=== PATIENT | female | born 1970 | race Caucasian/White ===

== ENCOUNTER → 2017-04-09 | Outpatient (CLI) | payer BC ==
--- NOTE | 2017-04-09 21:53 | XR ---
EXAMINATION TYPE: XR chest 2V DATE OF EXAM: 04/09/2017 COMPARISON: None HISTORY: 46 year-old female shortness of breath and cough for 5 weeks TECHNIQUE: Frontal and lateral views FINDINGS: The cardiomediastinal silhouette, aorta, and pulmonary vasculature are within normal limits. Lungs an d pleural spaces are clear. IMPRESSION: No acute cardiopulmonary process.
== END | disposition home or self-care (01) ==
LOC: RADXRYALE 16:13
PROVIDERS: ATTEND Physician Assistant Medical
DX: R06.02 Shortness of breath (principal)
CPT/HCPCS: 71020

== ENCOUNTER → 2018-09-23 | Outpatient (CLI) | payer BC ==
--- NOTE | 2018-09-23 18:42 | CT ---
EXAMINATION TYPE: CT sinus wo con DATE OF EXAM: 09/23/2018 COMPARISON: None HISTORY: 47-year-old female Chronic sinusitis and bilateral maxillary sinus pain. CT DLP: 644 mGycm Automated exposure control for dose reduction was used. TECHNIQUE: Noncontrast axial views of the paranasal sinuses were obtained. Coronal reconstructions pe rformed. FINDINGS: PARANASAL SINUSES: Moderate mucosal thickening left maxillary sinus with an air-fluid level. Mild mucosal thickening rig ht maxillary sinus but with mucosal retention cyst or polyp at the right maxillary sinus floor. Trace mucosal thickening right sphenoid sinus and moderate partial opacification anterior left ethmoi d air cells. Frontal sinuses are well pneumatized. Reactive zeny- osteogenesis is not seen. There is no destruction of the osseous bragg of the paranasal sinuses. THE NASAL CAVITY: Prominent opacification at the left osteomeatal complex which still remains patent. The right osteome atal complex is patent. The nasal septum is not deviated. The imaged brain and orbits are normal in appearance. Mastoid air cells and middle ear cavities are well pneumatized. Reformatted images confirm above findings. IMPRESSION: 1. Correlate for moderate acute on chronic left maxillary sinusitis. 2. Mild chronic paranasal sinus disease elsewhere though moderate also within the anterior left ethmo id air cells.
== END ==
LOC: RADCTMAIN 16:37
PROVIDERS: ATTEND Internal Medicine
DX: J32.2 Chronic ethmoidal sinusitis (principal)
CPT/HCPCS: 70486

== ENCOUNTER → 2018-12-03 | Outpatient (CLI) | payer BC ==
[2018-12-03 13:37] VITALS: BP 142/89; PULSE 104; RESP 16; TEMP 98.2; BMI 43.9
--- NOTE | 2018-12-03 14:18 | P.HPOB ---
History of Present Illness H&P Date: 12/03/18 Chief Complaint: The patient is here for her routine gynecologic exam and ma mmogram. This is a 48-year-old G2 PII with an LMP of June 2018. The patient is here to establish with this office. It has been about 3 years since her last pelvic exam. She is status post tubal ligation. Her menstrual periods have been spacing out over the last 2 years and have been about every 6 months during the past year. She is without gynecologic complaints. She denies any significant hot flashes. Review of Systems The patient's weight has been stable over the last year. She denies respiratory, cardiac, or G.I. problems. Past Medical History Past Medical History: GERD/Reflux Additional Past Medical History / Comment(s): Seasonal allergies. 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 - Past Family History Maternal grandmother Family Medical History: Cancer Additional Family Medical History / Comment(s): Possible gynecologic cancer, type uncertain. Mother Family Medical History: No Reported History Medications and Allergies Home Medications Medication Instructions Recorded Confirmed Type Ascorbic Acid [Vitamin C] 500 mg PO DAILY 12/03/18 12/03/18 History Loratadine [Claritin] 10 mg PO DAILY 12/03/18 12/03/18 History Multivitamin [Multivitamins Adult 1 each PO DAILY 12/03/18 12/03/18 History Gummies] Omeprazole [PriLOSEC] 20 mg PO [id number] 12/03/18 12/03/18 History Allergies Allergy/AdvReac Type Severity Reaction Status Date / Time No Known Allergies Allergy Unverified 12/03/18 13:37 Exam Vital Signs Temp Pulse Resp BP Pulse Ox 12/03/18 13:31 98.2 F 104 H 16 142/89 98 Intake and Output 12/02/18 12/03/18 12/03/18 22:59 06:59 14:59 Other: Weight 123.377 kg Height 5'6", weight 272 pounds, BMI 43.9. This is a well-developed well-nourished heavyset white female who is alert and oriented times 3 in no acute distress. HEENT: Within normal limits. NECK: Supple without mass or thyromegaly. CHEST AND LUNGS: Clear to auscultation. HEART: Regular rate and rhythm. BREASTS: Are without mass or discharge. AXILLARY EXAM: Negative for adenopathy. BACK: Negative for CVA tenderness. ABDOMEN: Soft, obese, nontender, without palpable masses. PELVIC EXAM: Normal external genitalia. Cervix and vagina appear normal. There is no unusual discharge. There is no evidence of prolapse. The uterus is midposition, nongravid size and nontender. There are no palpable adnexal masses or tenderness. Bimanual examination is somewhat limited secondary to her size. RECTAL EXAM: recto vaginal exam is negative for mass or tenderness and is negative for occult blood. EXTREMITIES: Nontender. IMPRESSION: 1. 48-year-old perimenopausal female with recent oligomenorrhea with no significant vasomotor symptoms. 2. Obesity 3. Status post tubal sterilization. PLAN: 1. Pap smear was performed. 2. Self breast awareness was discussed with the patient. 3. Screening mammogram will be done today. 4. Patient will keep the menstrual calendar. She will return if she is having menstrual problems. 5. I have recommended screening colonoscopy. She will discuss this with Dr. Sloan. 6.Osteoporosis prevention was discussed. I have stressed the importance of adequate calcium, vitamin D and regular exercise. Recommended amounts of calcium and vitamin D were also discussed. 7.She was advised to return in one year for her annual well woman exam.
--- NOTE | 2018-12-05 13:25 | MM ---
Reason for exam: screening (asymptomatic). Last mammogram was performed 2 years and 11 months ago. History: Patient had first child at age 32. Took hormonal contraceptives for 10 years beginning at age 22. Physical Findings: A clinical breast exam by your physician is recommended on an annual basis and results should be correlated with mammographic findings. MG Screening Mammo w CAD Bilateral CC and MLO view(s) were taken. Prior study comparison: December 23, 2015, bilateral MG 3d screening mammo w/cad. November 28, 2013, bilateral MG screening mammo w CAD. There are scattered fibroglandular densities. No significant changes when compared with prior studies. ASSESSMENT: Benign, BI-RAD 2 RECOMMENDATION: Routine screening mammogram of both breasts in 1 year.
== END | disposition home or self-care (01) ==
LOC: WWCWWP 13:19
PROVIDERS: ATTEND Obstetrics & Gynecology
DX: Z12.31 Encounter for screening mammogram for malignant neoplasm of breast (principal)
CPT/HCPCS: 77067

== ENCOUNTER → 2020-08-24 | Outpatient (CLI) | payer BC ==
--- NOTE | 2020-08-24 12:26 | XR ---
EXAMINATION TYPE: XR lumbosacral spine min 4V DATE OF EXAM: 08/24/2020 COMPARISON: None HISTORY: Lumbago TECHNIQUE: 4 view lumbar spine FINDINGS: There are 5 lumbar-type vertebral bodies. Pedicles are intact. Disc heights appear preserve d. Vertebral body heights are preserved. Limbus vertebra is present at L3 IMPRESSION: 1. No acute osseous abnormality lumbar spine
== END | disposition home or self-care (01) ==
LOC: RADXRYALE 09:14
PROVIDERS: ATTEND Family Medicine
DX: M54.5 Low back pain (principal); R20.2 Paresthesia of skin
CPT/HCPCS: 72110

== ENCOUNTER 2020-12-16 09:23 | Day surgery (SDC) | payer BC ==
[2020-12-15 08:51] VITALS: BMI 42.7
[~2020-12-16 09:23] MED LIST: LACTATED RINGERS 1,000 ML IV SCH
[2020-12-16 09:53] VITALS: TEMP 97.2
[2020-12-16] MEDS ORDERED: PROPOFOL 10 MG/ML 20 ML VIAL IV ONE (10:21)
[2020-12-16] MEDS ORDERED: LIDOCAINE 1% INJ 10MG/ML (20 ML MDV) ONE (10:21)
[2020-12-16] MEDS ORDERED: IV FLUID CONTINUATION 1,000 ML IV ONE (10:40)
--- NOTE | 2020-12-16 10:40 | P.PCN ---
Date of Procedure: 12/16/20 Description of Procedure: BRIEF HISTORY: Patient is a 50-year-old female presenting for outpatient colonoscopy for screening malignant neoplasm colon. No prior colonoscopy. No joint bowel habits. No family history of colon cancer. PROCEDURE PERFORMED: Colonoscopy with polypectomy. PREOPERATIVE DIAGNOSIS: Screening for malignant neoplasm of the colon, no prior colonoscopy. ESTIMATED BLOOD LOSS: Minimal. IV sedation per Anesthesia. PROCEDURE: After informed consent was obtained, the patient, was brought into the endoscopy unit. IV sedation was administered by Anesthesia under continuous monitoring. Digital rectal examination was normal. Initially the Olympus CF-190 flexible vi ines colonoscope was then inserted in the rectum, gradually advanced into the cecum without any difficulty. Careful examination was performed as the scope was gradually being withdrawn. Ileocecal valve and the appendiceal orifice were visualized and appeared normal. Prep was excellent. Mucosa of the cecum, ascending colon, transverse colon, descending colon, sigmoid colon, and rectum appeared normal. A sessile 4 mm descending colon polyp was removed with cold snare polypectomy. Retroflexion was performed in the rectum and no lesions were seen, and low-grade internal hemorrhoids and skin tags were noted. The patient tolerated the procedure well. IMPRESSION: Sessile descending colon polyp removed with cold snare polypectomy. Internal hemorrhoids. RECOMMENDATIONS: Findings of this examination were discussed with the patient and her family. Okay to resume diet. Okay to resume medications. Await pathology from polypectomy. Recommend repeat colonoscopy in 7 years for colon polyp pending pathology from polypectomy.
[2020-12-16 11:02] VITALS: BP 123/85; PULSE 86; RESP 18
== END 2020-12-16 11:09 | disposition home or self-care (01) ==
LOC: ORWHC2ENDO 09:23
PROVIDERS: ATTEND Internal Medicine
DX: Z12.11 Encounter for screening for malignant neoplasm of colon (principal); K63.5 Polyp of colon; K64.8 Other hemorrhoids; Z98.51 Tubal ligation status; Z98.890 Other specified postprocedural states; Z79.1 Long term (current) use of non-steroidal anti-inflammatories (NSAID); Z79.899 Other long term (current) drug therapy; I10 Essential (primary) hypertension; E78.5 Hyperlipidemia, unspecified; K21.9 Gastro-esophageal reflux disease without esophagitis
CPT/HCPCS: 88305; 45385; J2001; J2704

== ENCOUNTER → 2021-11-15 | Outpatient (CLI) | payer BC ==
--- NOTE | 2021-11-17 07:27 | MM ---
Reason for Exam: Screening (asymptomatic). Last mammogram was performed 2 year(s) and 11 month(s) ago. Patient History: Menarche at age 11. First Full-Term at age 32. Late child-bearing (after 30). Hormonal Contraceptives for 10 years from age 22 until age 32. Risk Values: Kandi 5 year model risk: 1.5%. NCI Lifetime model risk: 11.6%. Prior Study Comparison: 11/28/2013 Bilateral Screening Mammogram, [facility]. 12/23/2015 Bilateral Screening Mammogram, [facility]. 12/03/2018 Bilateral Screening Mammogram, [facility]. Tissue Density: There are scattered fibroglandular densities. Findings: Analyzed By CAD. No suspicious groups of microcalcifications, spiculated or lobular masses, architectural distortion or other secondary signs of malignancy are mammographically apparent. Overall Assessment: Benign, BI-RAD 2 Management: Screening Mammogram of both breasts in 1 year. A negative mammogram report should not preclude additional follow up of suspicious palpable abnormalities. Patient should continue monthly self breast exam. A clinical breast exam by your physician is recommended on an annual basis and results should be correlated with mammographic findings. Electronically signed and approved by: Abdoul Aponte D.O. Radiologis
== END | disposition home or self-care (01) ==
LOC: RADMAMWWP 07:06
PROVIDERS: ATTEND Family Medicine
DX: Z12.31 Encounter for screening mammogram for malignant neoplasm of breast (principal)
CPT/HCPCS: 77067

== ENCOUNTER → 2022-08-14 | Outpatient (CLI) | payer BC ==
--- NOTE | 2022-08-14 10:50 | XR ---
EXAMINATION TYPE: XR foot complete LT DATE OF EXAM: 08/14/2022 CLINICAL HISTORY: pain TECHNIQUE: Frontal, lateral and oblique images of the left foot are obtained. COMPARISON: 05/02/16 FINDINGS: There is no acute fracture/dislocation evident. Again noted is healed fracture at the neck of the fifth metatarsal. The joint spaces appear within normal limits. The overlying soft tissue a ppears unremarkable. IMPRESSION: There is no acute fracture or dislocation. ICD 10 NO FRACTURE, INITIAL EVALUATION
== END | disposition home or self-care (01) ==
LOC: RADXRYALE 10:17
PROVIDERS: ATTEND Physician Assistant Medical
DX: M79.672 Pain in left foot (principal)

== ENCOUNTER → 2023-04-27 | Outpatient (CLI) | payer BC ==
[2023-04-28 03:36] LABS: Immunoglobulin E 56.3 IU/mL (0.00-114.00)
[2023-04-28 03:56] LABS: Basophils # (A) 0.08 X 10*3/uL (0.00-0.10); Basophils % (A) 0.9 %; Eosinophils # (A) 0.25 X 10*3/uL (0.04-0.35); Eosinophils % (A) 2.9 %; HGB 13.5 g/dL (12.0-15.0); Lymphocytes # (A) 2.41 X 10*3/uL (0.90-5.00); Lymphocytes % (A) 28.2 %; MCH 28.7 pg (27.0-32.0); MCHC 31.4 g/dL (32.0-37.0); MCV 91.5 FL (80.0-97.0); Mean Platelet Volume 11.1 FL (9.5-12.2); Monocytes # (A) 0.44 X 10*3/uL (0.20-1.00); Monocytes % (A) 5.1 %; NRBC Per 100 WBC 0 X 10*3/uL (0.00-0.01); Neutrophils # (A) 5.35 X 10*3/uL (1.80-7.70); Neutrophils % (A) 62.5 %; Platelet Count 243 X 10*3/uL (140-440); RDW 13.7 % (11.5-14.5); WBC 8.56 X 10*3/uL (4.50-10.00)
[2023-04-30 12:46] LABS: IgG Subclass 1 468.7 mg/dL (382.40-928.60); IgG Subclass 2 332.5 mg/dL (241.80-700.30); IgG Subclass 3 50.2 mg/dL (21.82-176.00); IgG Subclass 4 27.3 mg/dL (3.92-86.40)
== END | disposition home or self-care (01) ==
LOC: LABWHC1 15:49
PROVIDERS: ATTEND Internal Medicine
DX: J32.8 Other chronic sinusitis (principal)
CPT/HCPCS: 36415; 82784; 82785; 82787; 85025

== ENCOUNTER → 2023-05-02 | Outpatient (CLI) | payer BC ==
--- NOTE | 2023-05-03 08:19 | CT ---
EXAMINATION TYPE: CT sinus wo con DATE OF EXAM: 05/02/2023 COMPARISON: 09/23/2018 HISTORY: chronic sinus congestion CT DLP: 412 mGycm. Automated Exposure Control for Dose Reduction was Utilized. TECHNIQUE: CT scan of the sinuses is performed without contrast, axial images are obtained, coronal r eformatted images are also reviewed. FINDINGS: The paranasal sinuses including the frontal, ethmoid, sphenoid, and maxillary sinuses bila terally are well-aerated minimal mucosal thickening involving the sphenoid sinus on the right.. The ostiomeatal complex is patent bilaterally on the coronal images. Visualized portion of mastoid air cells show no abnormal opacification. The globes are intact bilate rally. Soft tissue calcification seen in the parapharyngeal space. Intracranial mild degenerative ch anges. IMPRESSION: 1. Minimal chronic sphenoidal sinusitis with no evidence of acute sinusitis.
== END | disposition home or self-care (01) ==
LOC: RADCTMAIN 16:34
PROVIDERS: ATTEND Internal Medicine
DX: J32.3 Chronic sphenoidal sinusitis (principal); J32.0 Chronic maxillary sinusitis
CPT/HCPCS: 70486

== ENCOUNTER → 2023-05-25 | Outpatient (CLI) | payer BC ==
--- NOTE | 2023-05-25 13:16 | MM ---
Reason for Exam: Screening (asymptomatic). Last mammogram was performed 1 year(s) and 7 month(s) ago. Patient History: Menarche at age 11. First Full-Term at age 32. Late child-bearing (after 30). Postmenopausal. Patient has history of breast feeding. Hormonal Contraceptives for 10 years from age 22 until age 32. Risk Values: Kandi 5 year model risk: 1.6%. NCI Lifetime model risk: 11.4%. Prior Study Comparison: 11/28/2013 Bilateral Screening Mammogram, [facility]. 12/23/2015 Bilateral Screening Mammogram, [facility]. 12/03/2018 Bilateral Screening Mammogram, [facility]. 11/15/2021 Bilateral MG screening mammo w CAD, [facility]. Tissue Density: There are scattered fibroglandular densities. Findings: Analyzed By CAD. There is no suspicious group of microcalcifications or new suspicious mass. Overall Assessment: Negative, BI-RAD 1 Management: Screening Mammogram of both breasts in [address] [facility] will attempt to contact patient to return for supplemental views and ultrasound if indicated. Patient should continue monthly self-breast exams. A clinical breast exam by your physician is recommended on an annual basis. This exam should not preclude additional follow-up of suspicious palpable abnormalities. Note on Kandi scores and lifetime risk: 1. A Kandi score greater than 3% is considered moderate risk. If this is the case, consider specialist referral to assess eligibility for a risk reducing agent. 2. If overall lifetime risk for the development of breast cancer is 20% or higher, the patient may qualify for future screening with alternating mammogram and breast MRI. Electronically signed and approved by: Jamarcus Hall DO
== END | disposition home or self-care (01) ==
LOC: RADMAMWWP 09:44
PROVIDERS: ATTEND Family Medicine
DX: Z12.31 Encounter for screening mammogram for malignant neoplasm of breast (principal); Z78.0 Asymptomatic menopausal state
CPT/HCPCS: 77063; 77067

== ENCOUNTER → 2023-10-29 | Outpatient (CLI) | payer BC ==
[2023-10-29 15:38] LABS: Basophils # (A) 0.06 X 10*3/uL (0.00-0.10); Basophils % (A) 0.8 %; Eosinophils # (A) 0.12 X 10*3/uL (0.04-0.35); Eosinophils % (A) 1.5 %; HCT 40.5 % (37.2-46.3); HGB 13.3 g/dL (12.0-15.0); Lymphocytes # (A) 2.11 X 10*3/uL (0.90-5.00); Lymphocytes % (A) 26.5 %; MCH 28.7 pg (27.0-32.0); MCHC 32.8 g/dL (32.0-37.0); MCV 87.3 FL (80.0-97.0); Mean Platelet Volume 10.3 FL (9.5-12.2); Monocytes % (A) 6.3 %; NRBC Per 100 WBC 0 X 10*3/uL (0.00-0.01); Neutrophils # (A) 5.15 X 10*3/uL (1.80-7.70); Neutrophils % (A) 64.5 %; Platelet Count 301 X 10*3/uL (140-440); RBC 4.64 X 10*6/uL (4.10-5.20); RDW 13.6 % (11.5-14.5); WBC 7.97 X 10*3/uL (4.50-10.00)
[2023-10-29 16:24] LABS: ALT 39 U/L (8-44); AST 33 U/L (13-35); Albumin 4.9 g/dL (3.8-4.9); Albumin/Globulin Ratio 1.75 Ratio (1.60-3.17); Alkaline Phosphatase 97 U/L (41-126); BUN/Creat Ratio 10.75 Ratio (12.00-20.00); Blood Urea Nitrogen 8.6 mg/dL (9.0-27.0); Carbon Dioxide 24.1 mmol/L (21.6-31.8); Chloride 101 mmol/L (96-109); Chol/HDL Ratio 3.79 Ratio; Creatine Kinase 296 U/L (26-186); Globulin 2.8 g/dL (1.6-3.3); Glucose 95 mg/dL (70-110); LDL Cholesterol,Calculated 90.5 mg/dL (0.0-131.0); Potassium 3.6 mmol/L (3.5-5.5); Sodium 142 mmol/L (135-145); Total Bilirubin 0.6 mg/dL (0.3-1.2); Total Protein 7.7 g/dL (6.2-8.2)
== END | disposition home or self-care (01) ==
LOC: LABWHC1 09:30
PROVIDERS: ATTEND Family Medicine
DX: Z00.00 Encounter for general adult medical examination without abnormal findings (principal); Z13.29 Encounter for screening for other suspected endocrine disorder; Z13.228 Encounter for screening for other metabolic disorders; I10 Essential (primary) hypertension; E78.2 Mixed hyperlipidemia; E87.6 Hypokalemia
CPT/HCPCS: 36415; 80053; 80061; 82550; 84443; 85025